=== PATIENT | male | born 1955 | race Caucasian/White ===

== ENCOUNTER 2017-10-22 15:08 | Outpatient (CLI) | payer OTHER | END 2017-10-22 15:20 | disposition home or self-care (01) | LOC: LAB 15:08 | DX: R97.20 Elevated prostate specific antigen [PSA] (principal) ==

== ENCOUNTER 2020-10-20 13:07 | Inpatient (IN) | payer OTHER ==
[~2020-10-20 13:07] MED LIST: ENALAPRIL MALEAT5 MG PO
== END 2020-10-21 10:30 | disposition home or self-care (01) | DRG 667 ==
LOC: CIR.AMB 13:07 → O/R 20:38
PROVIDERS: ADMIT Urology; ATTEND Urology
PROC: 0VB08ZZ Excision of Prostate, Via Natural or Artificial Opening Endoscopic (ICD-10-PCS; principal; 2020-10-20 14:30)
DX: R33.8 Other retention of urine (principal); I10 Essential (primary) hypertension; Z20.822 Contact with and (suspected) exposure to COVID-19